=== PATIENT | female | born 1955 | race Caucasian/White ===

== ENCOUNTER 2021-05-21 12:29 | Observation (INO) ==
[2021-05-21] MEDS ORDERED: Famotidine IV 10 MG/ML 2 ml VIAL (20 mg) IV SLOW PU ONE (12:58)
[2021-05-21] MEDS ORDERED: methylPREDNISolone 125 mg 2 ML VIAL IV ONE (12:58)
[2021-05-21] MEDS ORDERED: Lactated Ringers 1000 ml BAG 1,000 ML IV ONE (12:58)
[2021-05-21 14:22] LABS: ABS Eosinophils 0.1 10^3/ul (0-0.6); ABS Lymphocytes 1.7 10^3/ul (1.0-4.8); ABS Monocytes 0.7 10^3/ul (0-0.8); ABS Neutrophils 13.9 10^3/ul (1.5-7.7); Eosinophil % 0.7 %; Hematocrit 51 % (35-47); Hemoglobin 16.9 g/dL (12.0-16.0); Lymphocyte % 10.3 %; Mean Corpuscular HGB Conc 33 g/dL (31-36); Mean Corpuscular Hemoglobin 29 pg (27-31); Mean Corpuscular Volume 86 fL (80-97); Mean Platelet Volume 7.3 fL (7.4-10.4); Nucleated Red Blood Cells % 0.2; Platelet Count 458 10^3/uL (150-450); Red Blood Count 5.91 10^6 /uL (3.70-4.87); Red Cell Distribution Width 14 % (10-15); White Blood Count 16.4 10^3/uL (3.5-10.8)
[2021-05-21 14:35] LABS: Activated Partial Thrombo Time 28.1 seconds (26.0-38.0); INR 1.05 (0.86-1.15)
[2021-05-21 14:53] LABS: Urine Appearance Cloudy; Urine Bilirubin Negative (Negative); Urine Blood 1+ (Negative); Urine Color Yellow; Urine Glucose 1+(50 mg/dL) (Negative); Urine Ketones 1+ (Negative); Urine Nitrite Negative (Negative); Urine Protein 2+(100 mg/dL) (Negative); Urine Specific Gravity 1.014 (1.002-1.030); Urine Urobilinogen Negative (Negative)
[2021-05-21 15:13] LABS: Urine Amorphous Crystals Present (Absent); Urine Bacteria 1+ (Absent); Urine Red Blood Cell 2+(6-10/hpf) (Absent); Urine Squamous Epithelial Cell Present (Absent); Urine White Blood Cell 1+(6-10/hpf) (Absent); Urine Yeast Present (Absent)
[2021-05-21 15:26] LABS: Albumin 4.1 g/dL (3.2-5.2); Albumin/Globulin Ratio 1.7 (1-3); C Reactive Protein 6.71 mg/L (<8.01); Calcium 9.9 mg/dL (8.6-10.3); Globulin 2.4 g/dL (2-4); Magnesium 1.9 mg/dL (1.9-2.7); Potassium 3.9 mmol/L (3.5-5.0); Total Bilirubin 0.6 mg/dL (0.2-1.0); Total Protein 6.5 g/dL (6.4-8.9); eGFR CKD-EPI 39.9 (>60)
[2021-05-21] MEDS ORDERED: Lactated Ringers 1000 ml BAG 1,000 ML IV SCH (16:22)
[2021-05-21] MEDS ORDERED: methylPREDNISolone SOD 40 mg/ml 1 ml VIAL IV ONE (17:47)
[2021-05-21] MEDS ORDERED: Triamcinolone 0.5% OINT 1 TUBE TOPICAL PRN (17:48)
[2021-05-21] MEDS: diPHENhydraMINE 25 mg TAB PO PRN (18:21)
[2021-05-22 05:02] LABS: ABS Lymphocytes 0.4 10^3/ul (1.0-4.8); ABS Monocytes 0.3 10^3/ul (0-0.8); ABS Neutrophils 9.7 10^3/ul (1.5-7.7); Hematocrit 43 % (35-47); Lymphocyte % 3.6 %; Mean Corpuscular HGB Conc 35 g/dL (31-36); Mean Corpuscular Hemoglobin 30 pg (27-31); Mean Corpuscular Volume 85 fL (80-97); Mean Platelet Volume 7.4 fL (7.4-10.4); Platelet Count 367 10^3/uL (150-450); Red Blood Count 5.08 10^6 /uL (3.70-4.87); Red Cell Distribution Width 14 % (10-15); White Blood Count 10.3 10^3/uL (3.5-10.8)
[2021-05-22 05:30] LABS: Calcium 9.3 mg/dL (8.6-10.3); Potassium 4.4 mmol/L (3.5-5.0); eGFR CKD-EPI 63.7 (>60)
[2021-05-22] MEDS: diPHENhydraMINE 25 mg TAB PO PRN (13:36)
[2021-05-22] MEDS ORDERED: Calcium Carb (TUMS) 500 mg CHEW TAB PO PRN (14:12)
[2021-05-22] MEDS ORDERED: diPHENhydraMINE 25 mg TAB PO SCH (15:00)
[2021-05-22 16:08] VITALS: BP 143/59
== END 2021-05-22 16:35 | disposition home or self-care (01) ==
LOC: ED 12:29 → INTOOBSV 18:01 → EDHOLD 18:01 → SUATTDRO 18:01 → MED 19:55
PROVIDERS: ADMIT Nurse Practitioner Adult Health; ATTEND Internal Medicine